=== PATIENT | male | born 1995 | race Caucasian/White ===

== ENCOUNTER 2017-04-17 09:33 | Emergency (ER) ==
[2017-04-17 09:38] VITALS: BP 138/90; TEMP 98.4; BMI 24.0
--- NOTE | 2017-04-17 09:49 | ED.PDOC ---
General ED Provider: Dr. CHANDLER THAPA-ER Chief Complaint: Non-specific Complaint Stated Complaint: 4 weeks of rash between the toes with scale--pruritic--no fever or chills Time Seen by Physician: 09:40 Mode of Arrival: Walk-In Information Source: Patient Exam Limitations: No limitations Primary Care Provider[facility] Nursing and Triage Documentation Reviewed and Agree: Yes Skin Complaint Exam - Skin Rash/Itching Complaint/Exam Onset/Duration: 4 weeks Symptoms Are: Still present Initial Severity: Mild Current Severity: Mild Location: bilateral feet --anterior and posterior surface and between the toes Potential Exposures: Reports: Other Aggravating: Reports: None Alleviating: Reports: None Associated Signs and Symptoms: Denies: Difficulty breathing, Fever, Chills Skin Findings: Present: Dry scaly skin Differential Diagnoses: Allergic Reaction, Contact Dermatitis, Tinea Review of Systems - Review Of Systems Constitutional: Reports: No symptoms Eyes: Reports: No symptoms Ears, Nose, Mouth, Throat: Reports: No symptoms Respiratory: Reports: No symptoms Cardiac: Reports: No symptoms GI: Reports: No symptoms : Reports: No symptoms Musculoskeletal: Reports: No symptoms Skin: Reports: Dryness, Rash Neurological: Reports: No symptoms Endocrine: Reports: No symptoms Hematologic/Lymphatic: Reports: No symptoms All Other Systems: Reviewed and Negative Past Medical History - Past Medical History Previously Healthy: Yes Endocrine: Reports: Unknown Cardiovascular: Reports: Unknown Respiratory: Reports: Unknown Hematological: Reports: Unknown Gastrointestinal: Reports: Unknown Genitourinary: Reports: Unknown Neuro/Psych: Reports: Other (downs syndrome) Musculoskeletal: Reports: Unknown Cancer: Reports: Unknown - Surgical History General Surgical History: Reports: Unknown - Family History Family History: Reports: Unknown - Social History Smoking Status: Never smoker Hx Substance Use: No Alcohol Screening: None Lives: With family Physical Exam - Physical Exam Appearance: Well-appearing, No pain distress, Well-nourished Eyes: THEA, EOMI, Conjunctiva clear ENT: Ears normal, Nose normal, Oropharynx normal Neck: Supple Respiratory: Airway patent, Breath sounds clear, Breath sounds equal, Respirations nonlabored Cardiovascular: RRR GI/: Soft, Nontender, No masses, Bowel sounds normal, No Organomegaly Musculoskeletal: Normal strength, ROM intact, No edema, No calf tenderness Skin: Warm, Dry Neurological: Sensation intact Psychiatric: Affect appropriate, Mood appropriate Critical Care Note - Critical Care Note Total Time (mins): 0 Course - Course Orders, Labs, Meds: Orders Category Date Time Status ACCUCHECK (ED) [ED ACCUCHECK ASSESSMENT] .ONCE EMERGENCY 04/17/17 09:45 Active Vital Signs: Temp Pulse Resp BP Pulse Ox 04/17/17 09:33 98.4 F 56 L 20 138/90 97 Departure - Departure Time of Disposition: 09:50 Disposition: HOME SELF-CARE Discharge Problem: Rash Instructions: Acute Rash (ED) Condition: Good Pt referred to PMD for follow-up: Yes Additional Instructions: diflucan 100mg x 3 shelton..nizoral cream apply q daily hs x 14days--keflex 500mg bid x 7 days---prednisone 20mg x 2 days then 10mg x 5 days--f/u wtih pcp later this week Allergies/Adverse Reactions: Allergies No Known Allergies Allergy (Verified 04/17/17 09:38) Home Medications: Ambulatory Orders 1 [No Reported Medications] 02/28/14 Disposition Discussed With: Patient, Family
== END 2017-04-17 10:02 | disposition home or self-care (01) ==
LOC: ED 09:33
DX: R21 Rash and other nonspecific skin eruption (principal)
CPT/HCPCS: 82962; 99282

== ENCOUNTER 2017-05-10 14:11 | Outpatient (CLI) ==
[2017-05-10 14:24] LABS: BASOPHILS # (AUTO) 0.1 K/uL (0-0.2); BASOPHILS % (AUTO) 1.6 % (0.0-3.0); EOSINOPHILS % (AUTO) 13.2 % (0.0-7.0); HEMATOCRIT 44.3 % (42.0-52.0); HEMOGLOBIN 15.6 g/dl (14.0-18.0); IMMATURE GRANULOCYTE % (AUTO) 0.1 % (0.0-5.0); LYMPHOCYTES # (AUTO) 2.2 K/uL (0.60-3.4); LYMPHOCYTES % (AUTO) 28.5 (10.0-50.0); MEAN CORPUSCULAR HEMOGLOBIN 33.5 pg (27.0-31.0); MEAN CORPUSCULAR HGB CONC 35.2 (31.8-35.4); MEAN CORPUSCULAR VOLUME 95.1 fl (80.0-94.0); MONOCYTES # (AUTO) 0.4 K/uL (0.4-2.0); MONOCYTES % (AUTO) 5.8 (0-10); NEUTROPHILS # (AUTO) 3.9 K/ul (2.0-6.9); NEUTROPHILS % (AUTO) 50.8; PLATELET COUNT 285 10^3/uL (140-440); RED BLOOD COUNT 4.66 10^6/ul (4.70-6.10); WHITE BLOOD COUNT 7.58 K/ul (4.2-10.2)
[2017-05-10 16:30] LABS: ALBUMIN 3.8 g/dL (3.4-5.0); ALBUMIN/GLOBULIN RATIO 0.9; ANION GAP 12.4; BILIRUBIN,TOTAL 0.22 mg/dL (0.00-1.20); BUN/CREATININE RATIO 13.95; CALCIUM 9.7 mg/dL (8.2-10.2); CHOL/HDL RATIO 4.4 (4.5-6.4); CREATININE 0.86 mg/dL (0.60-1.10); POTASSIUM 4.4 mmol/L (3.5-5.1)
== END 2017-05-10 14:12 | disposition home or self-care (01) ==
LOC: LAB 14:11
PROVIDERS: ATTEND Nurse Practitioner Family
DX: Z00.00 Encounter for general adult medical examination without abnormal findings (principal); B35.1 Tinea unguium
CPT/HCPCS: 36415; 80053; 80061; 84443; 85025